=== PATIENT | male | born 1990 | race Caucasian/White ===

== ENCOUNTER → 2017-11-03 | Day surgery (SDC) | payer OTHER ==
[2017-10-31 15:43] LABS: BASOPHILS % 0.7 % (0.0-1.0); EOSINOPHILS # (AUTO) 0.3 (0.0-0.4); HEMATOCRIT 39.8 % (38.2-49.6); HEMOGLOBIN 14.4 g/dL (14.0-18.0); LYMPHOCYTES # (AUTO) 2.1 (1.0-3.2); LYMPHOCYTES % 37.5 % (18.0-39.1); MEAN CORPUSCULAR HEMOGLOBIN 31.2 pg (28-32); MEAN CORPUSCULAR HGB CONC 36.2 g/dL (31-35); MEAN CORPUSCULAR VOLUME 86.3 fL (81-99); MONOCYTES # (AUTO) 0.6 (0.2-0.8); MONOCYTES % 10.4 % (4.4-11.3); NEUTROPHILS # (AUTO) 2.6 (2.1-6.9); NEUTROPHILS % 46.2 % (38.7-80.0); PLATELET COUNT 208 x10e3/uL (140-360); RED BLOOD COUNT 4.61 x10e6/uL (4.3-5.7); RED CELL DISTRIBUTION WIDTH 12.6 % (11.7-14.4)
[2017-10-31 16:03] LABS: ANION GAP 10.8 mmol/L (8-16); BLOOD UREA NITROGEN 18 mg/dL (7-26); BUN/CREATININE RATIO 17 (6-25); CALCIUM 9.3 mg/dL (8.4-10.2); CARBON DIOXIDE 24 mmol/L (22-29); CHLORIDE 108 mmol/L (98-107); CREATININE, SERUM 1.08 mg/dL (0.72-1.25); EST GLOMERULAR FILTRATION RATE > 60 ML/MIN (60-); GLUCOSE 102 mg/dL (74-118); POTASSIUM 3.8 mmol/L (3.5-5.1); SODIUM 139 mmol/L (136-145)
[~2017-11-03] MED LIST: ACETAMINOPHEN 1000 MG/100 ML 100 ML IV ONE; ADDERALL 20 MG20 MG PO; BUPIVACAINE 0.25%/EPI 30ML SDV INJ ONE; DEXAMETHASONE SOD PHOS INJ 4 MG/ML VIAL ONE; FENTANYL CITRATE/PF 100MCG/2 ML INJ ONE; HYDROMORPHONE 2MG/ML INJ ONE; IBUPROFEN400 MG PO; KETOROLAC TROMETHAMINE 30 MG/ML VIAL ONE; LIDOCAINE HCL 1% LOCAL INJ 20 ML VIAL ONE; LIDOCAINE HCL 2% LOCAL INJ 5 ML SDV VIAL INJ ONE; MIDAZOLAM HCL 2 MG/2 ML VIAL ONE; ONDANSETRON HCL INJ 2 MG/ML VIAL ONE; PROPOFOL IV EMULSION 10 MG/ML 20 ML VIAL ONE; SEVOFLURANE INHAL SOLN 250 ML PEN BTL ONE
--- NOTE | 2017-11-03 13:59 | Operative Report ---
DATE OF PROCEDURE: November 03, 2017 PREOPERATIVE DIAGNOSIS: Left inguinal hernia. POSTOPERATIVE DIAGNOSIS: Left inguinal hernia. OPERATION PERFORMED: Repair of left inguinal hernia with extended Prolene Hernia System. TEXTURING MACHINE FIXER: PAULINA Turcios. ANESTHESIA: General. COMPLICATIONS: None. ESTIMATED BLOOD LOSS: Minimal. DESCRIPTION OF PROCEDURE: With the patient lying in bed in the supine position, under good general anesthesia, the abdomen was prepped with Betadine solution and draped in the usual manner. A left inguinal incision was made. It was carried down through the subcutaneous tissue down to the external oblique aponeurosis. The external oblique was opened along the length of its fibers, and the external inguinal ring was opened. The cord was then mobilized and retracted. Exploration of the cord revealed the presence of a large indirect hernia sac, which was rather adherent to the cord structures. The sac was slowly and carefully from all the cord structures and mobilized all the way down to its neck. The hernia sac was then ligated with a pursestring suture of 2-0 silk and a 2-0 silk tie, and the excess was resected. After this was done, the preperitoneal space was then entered right through the internal ring, and a pocket was created without any difficulty. An extended Prolene Hernia System was placed in the preperitoneal space, and the underlay patch was deployed without any problems. The overlay patch was then placed over the floor and split inferolaterally to allow for passage of the cord. The mesh was then sutured to the conjoined tendon and inguinal ligament using interrupted sutures of 2-0 Vicryl. All layers were infiltrated on the way out with a solution of 0.25% Marcaine and 1% lidocaine mixed in equal parts. The whole area was thoroughly irrigated. Perfect hemostasis was ascertained. The wound was then closed in layers. External aponeurosis was closed with a running suture of 2-0 Vicryl. The subcutaneous tissue was approximated with 3-0 plain, and the skin was closed with clips. A dressing was applied. The sponge, lap and needle count was correct. Patient tolerated the procedure well and returned to the recovery room in stable condition. Job#: [id number]
== END | disposition home or self-care (01) ==
LOC: OR 09:40
PROVIDERS: ATTEND Surgery
DX: K40.90 Unilateral inguinal hernia, without obstruction or gangrene, not specified as recurrent (principal); G47.33 Obstructive sleep apnea (adult) (pediatric); F90.9 Attention-deficit hyperactivity disorder, unspecified type; Z01.812 Encounter for preprocedural laboratory examination
CPT/HCPCS: 36415; 49505; 80048; 85025; C1781; J1100; J1170; J1885; J2001 ×2; J2250; J2405

== ENCOUNTER → 2024-11-08 | Day surgery (SDC) | payer OTHER ==
[~2024-11-08] MED LIST changes: -BUPIVACAINE 0.25%/EPI 30ML SDV INJ ONE; +DEXAMETHASONE SOD PHOS INJ 4 MG/ML SDV ONE; -DEXAMETHASONE SOD PHOS INJ 4 MG/ML VIAL ONE; +FAMOTIDINE 20 MG/2 ML VIAL IV ONE; -HYDROMORPHONE 2MG/ML INJ ONE; -KETOROLAC TROMETHAMINE 30 MG/ML VIAL ONE; -LIDOCAINE HCL 1% LOCAL INJ 20 ML VIAL ONE; -ONDANSETRON HCL INJ 2 MG/ML VIAL ONE; +ONDANSETRON HCL INJ 2MG/ML 2ML 2 MG/ML VIAL ONE; +PREDNISONE5 MG/5 ML PO; +ROCURONIUM BROMIDE 1 ML IV ONE; -SEVOFLURANE INHAL SOLN 250 ML PEN BTL ONE; +SUGAMMADEX SODIUM 200 MG/2 ML VIAL IV ONE; +VIVANCE PO
[2024-11-08] MEDS: LACTATED RINGER'S 1,000 ML ONE (12:37)
[2024-11-08 12:44] LABS: BASOPHILS # (AUTO) 0.1 (0.0-0.1); BASOPHILS % 0.9 % (0.0-1.0); EOSINOPHILS # (AUTO) 0.2 (0.0-0.4); EOSINOPHILS % 2.8 % (0.0-6.0); HEMATOCRIT 48.7 % (38.2-49.6); HEMOGLOBIN 17.1 g/dL (14.0-18.0); LYMPHOCYTES # (AUTO) 1.3 (1.0-3.2); LYMPHOCYTES % 24.6 % (18.0-39.1); MEAN CORPUSCULAR HEMOGLOBIN 33.9 pg (28-32); MEAN CORPUSCULAR HGB CONC 35.1 g/dL (31-35); MEAN CORPUSCULAR VOLUME 96.4 fL (81-99); MONOCYTES # (AUTO) 0.6 (0.2-0.8); MONOCYTES % 11.9 % (4.4-11.3); NEUTROPHILS # (AUTO) 3.2 (2.1-6.9); NEUTROPHILS % 59.6 % (38.7-80.0); PLATELET COUNT 215 x10e3/uL (140-360); RED BLOOD COUNT 5.05 x10e6/uL (4.3-5.7); RED CELL DISTRIBUTION WIDTH 12.9 % (11.7-14.4)
[2024-11-08 13:05] LABS: ANION GAP 16.3 mmol/L (8-16); CREATININE, SERUM 0.84 mg/dL (0.72-1.25); POTASSIUM 4.3 mmol/L (3.5-5.1)
[2024-11-08 15:50] VITALS: TEMP 97.4
[2024-11-08] MEDS: FENTANYL CITRATE/PF 100MCG/2 ML INJ ONE (16:06)
[2024-11-08] MEDS: HYDROCODONE/APAP 7.5MG-325MG 1 EA TAB ONE (16:30)
[2024-11-08 16:50] VITALS: BP 140/98; PULSE 76; RESP 16; O2SAT 98
== END | disposition home or self-care (01) ==
LOC: OR 11:51
PROVIDERS: ATTEND Surgery
DX: K43.6 Other and unspecified ventral hernia with obstruction, without gangrene (principal); E78.5 Hyperlipidemia, unspecified; E66.9 Obesity, unspecified; F90.9 Attention-deficit hyperactivity disorder, unspecified type; H91.90 Unspecified hearing loss, unspecified ear; Z79.899 Other long term (current) drug therapy; Z68.32 Body mass index [BMI] 32.0-32.9, adult
CPT/HCPCS: 36415; 49594; 80048; 85025; 88302; C1781; J0131; J1100; J2003; J2250; J2405; J2704; J3010; J7121